=== PATIENT | female | born 1935 | race Hispanic/Latino ===

== ENCOUNTER 2017-07-24 10:03 | Emergency (ER) | payer OTHER ==
[~2017-07-24] VITALS: Ht 147.3 cm; Wt 77.1 kg
--- NOTE | 2017-07-24 12:47 | ED NECK/BACK PAIN COMPLAINT ---
History of Present Illness General Chief Complaint: Low Back Pain/Injury Stated Complaint: LBP/HIP PAIN Source: patient, family Exam Limitations: no limitations Vital Signs & Intake/Output Vital Signs & Intake/Output Vital Signs Date Time Temp Pulse Resp B/P B/P Pulse O2 O2 Flow FiO2 Mean Ox Delivery Rate 07/24 1655 97.8 82 18 158/76 98 Room Air 07/24 1444 97 Room Air 07/24 1423 97.6 80 16 175/74 97 Room Air 07/24 1027 96.7 95 15 173/77 98 Room Air Room Air Allergies Coded Allergies: Penicillins (Intermediate, RASH 07/24/17) Reconcile Medications Tylenol With Codeine (Tylenol With Codeine #3 Tablet) 300 MG-30 MG TABLET 1 TAB PO BIDP PRN PAIN Triage Note: PT TO ED FOR C/C OF R LOWER BACK PAIN "IN THE MUSCLE" THAT RADIATES TOWARDS FRONT OF BODY. HURTS WORSE WITH POSITION CHANGES ESPECIALLY SITTING AND GETTING UP. DENIES SYMPTOMS. HX OF RHEUMATOID ARTHRITIS. Triage Nurses Notes Reviewed? yes Onset: Gradual Duration: getting worse Timing: recent history Quality/Severity: severe, radiation Method of Injury: unknown HPI: Patient is a 81-year-old female with past medical history of rheumatoid arthritis and a recent history a few months ago of TIA who takes homeopathic medications who presents emergency room with a 2 year history of right-sided hip pain over the past 4 days her hip pain has significantly worsened. Patient also states for the past 2 weeks she's been complaining of generalized body itching sensation and is worried about cancer as family history significant for cancer, patient has had multiple colonoscopies with unremarkable findings, last bowel movement was yesterday noted the diarrhea loose watery in nature no blood no melena noted. Patient denies any fever chills shortness of breath cough nausea vomiting dysuria hematuria vaginal bleeding or discharge. Patient is able to eat with no change in symptoms Patient pain is described as the right posterior lateral hip with radiation to her right pelvic region states that ambulation and palpation makes worse at rest she has no symptoms DENIES any rash Denies any weight loss or night sweats Patient denies any mechanism of injury or recent falls (Steph TREADWELL,Darryl) Past History Travel History Traveled to [place] past 21 day No Medical History Any Pertinent Medical History? see below for history Neurological: TIA Cardiovascular: HEART PROBLEM (PT UNSURE) Musculoskeletal: RHEUMATOID ARTHRITIS Surgical History Surgical History: non-contributory Psychosocial History What is your primary language [place] Tobacco Use: Quit >30 days ago ETOH Use: denies use Illicit Drug Use: denies illicit drug use Family History Hx Contributory? No (Darryl Rico) Review of Systems Review of Systems Constitutional: Reports: no symptoms. Eyes: Reports: no symptoms. Ears, Nose, Throat, Mouth: Reports: no symptoms. Respiratory: Reports: no symptoms. Cardiovascular: Reports: no symptoms. Gastrointestinal/Abdominal: Reports: no symptoms. Musculoskeletal: Reports: see HPI, joint pain, muscle pain. Skin: Reports: see HPI. Neurological/Psychological: Reports: no symptoms. All Other Systems: Reviewed and Negative (Darryl Rico) Physical Exam Physical Exam General Appearance: mild distress Head: atraumatic Eyes: Bilateral: normal appearance, PERRL. Ears, Nose, Throat, Mouth: hearing grossly normal Neck: normal inspection, supple Respiratory: normal breath sounds, chest non-tender, no respiratory distress Cardiovascular: regular rate/rhythm Peripheral Pulses: 2+ radial (R) Gastrointestinal: MILD RLQ/PELVIC PAIN NO REBOUND TENDERNESS Back: normal inspection Neurologic/Psych: no motor/sensory deficits, awake, alert Skin: intact, normal color, warm/dry Comments: Right hip normal inspection right posterior lateral and anterior generalized point tenderness noted patient able to perform straight leg raise with pain. HIP Scoring test was negative Core Measures CVA/TIA Diagnosis: No (Darryl Rico) Progress Differential Diagnosis: AAA, aortic dissection, C spine injury, carotid dissection, cauda equina syn, herniated disc, myofascial strain, pyelo/UTI, sciatica, spinal cord inj, thoracic outlet syn, T/L spine injury, ureterolithiasis Plan of Care: Orders Procedure Date/time Status [facility] SED RATE 07/24 1302 Complete COMPREHENSIVE METABOLIC PANEL 07/24 1302 Complete CBC WITHOUT DIFFERENTIAL 07/24 1302 Complete Laboratory Tests 07/24/17 1341: Anion Gap 12, Estimated GFR > 60, BUN/Creatinine Ratio 20.0, Glucose 94, Calcium 9.5, Total Bilirubin 0.3, AST 30, ALT 33, Alkaline Phosphatase 79, Total Protein 7.5, Albumin 4.7, Globulin 2.8, Albumin/Globulin Ratio 1.7, CBC w Diff NO MAN DIFF REQ, RBC 4.47, MCV 98.1, MCH 32.7 H, MCHC 33.4, RDW 14.1, MPV 8.0, Gran % 62.9, Lymphocytes % 27.4, Monocytes % 6.1, Eosinophils % 2.4, Basophils % 1.2, Absolute Granulocytes 5.8, Absolute Lymphocytes 2.5, Absolute Monocytes 0.6, Absolute Eosinophils 0.2, Absolute Basophils 0.1, ESR [facility] 23 H 07/24/17 1302: Urine Color Cancelled, Urine Clarity Cancelled, Urine pH Cancelled, Ur Specific Gilliam Cancelled, Urine Protein Cancelled, Urine Ketones Cancelled, Urine Nitrite Cancelled, Urine Bilirubin Cancelled, Urine Urobilinogen Cancelled, Ur Leukocyte Esterase Cancelled, Ur Microscopic Cancelled, Urine Hemoglobin Cancelled, Urine Glucose Cancelled On examination no concerns of herpes zoster Patient does most likely have musculoskeletal pain upon palpation of the right gluteus lukas and medius upon palpation due to tenderness Patient noted to be weightbearing wincing in pain to the right lower extremity Blood work and CT scan will be ordered due to right pelvic pain Patient was reevaluated on multiple occasions noted to be resting comfortably in bed pain is only elicited upon weightbearing activities patient was given morphine patient was noted to be ambulating with a cane showing normal steady gait patient states that she has complete resolution of her pain upon weightbearing activities blood work and CT scan was unremarkable discussed results with patient most likely patient's pain is musculoskeletal in origin Case management will evaluate patient and set up home health services upon discharge patient looks well no apparent distress patient had no questions Dr. HESS also evaluated patient and agrees Diagnostic Imaging: Viewed by Me: CT Scan. Radiology Impression: no acute abnormality, no fracture Comments: PATIENT: FRANKLIN GRAF PRESENT AGE: 81 PATIENT ACCOUNT NO: [id number] : 36 LOCATION: [facility] ORDERING PHYSICIAN: Darryl TREADWELL SERVICE DATE: 07/24/17 EXAM TYPE: CAT - CT ABD & PELVIS W/O IV CONTRAS EXAMINATION: CT ABDOMEN AND PELVIS WITHOUT CONTRAST CLINICAL INFORMATION: Right pelvic and right hip pain COMPARISON: None. TECHNIQUE: Multidetector volumetric imaging was performed from the lung bases through the pubic symphysis. Sagittal and coronal reformatted images were obtained on the technologist workstation. Total exam dose-length product 479 mGy-cm FINDINGS: The lack of intravenous contrast limits evaluation of the solid visceral organs including the liver, spleen, pancreas, and kidneys. LUNG BASES: The visualized lung bases are unremarkable. LIVER, GALLBLADDER, AND BILIARY TREE: Limited non-contrast evaluation is normal. No gross focal hepatic lesion. Normal liver size and contour. No gross biliary ductal dilation. Multiple surgical clips are seen in the gallbladder fossa consistent with prior cholecystectomy PANCREAS: Limited non-contrast evaluation is normal. No hernesto-pancreatic fluid. SPLEEN: Limited non-contrast evaluation is normal. ADRENAL GLANDS: Normal; no adrenal mass. KIDNEYS AND URETERS: Both kidneys, particularly on the right, have a somewhat transverse orientation. No hydronephrosis or calculi seen. Lack of intravenous contrast limits evaluation for mass. GASTROINTESTINAL TRACT: Small bowel and colon are non-dilated. No bowel wall thickening. No pericolonic inflammatory changes to suggest colitis or diverticulitis. Normal appendix ABDOMINAL WALL: No hernia seen. LYMPH NODES: No pathologically enlarged lymph nodes in the abdomen or pelvis. VASCULAR: Normal caliber abdominal aorta. BLADDER: Unremarkable. PELVIC VISCERA: Normal noncontrast appearance of the uterus and ovaries. OSSEOUS STRUCTURES: No acute or suspicious osseous abnormalities. There are multilevel degenerative changes of the thoracolumbar spine with lower lumbar facet arthropathy. This study was not performed specifically to evaluate for right hip fracture but no displaced right hip or pelvic fracture is seen. IMPRESSION: No CT findings to explain the patient's right hip or pelvic pain. DICTATED BY: Jorje Herrera MD DATE/TIME DICTATED:07/24/171535 [facility] AIDE:GREG DATE/TIME TRANSCRIBED:07/24/171535 CONFIDENTIAL, DO NOT COPY WITHOUT APPROPRIATE AUTHORIZATION. <Electronically signed in Other Vendor System> SIGNED BY: Jorje Herrera MD [id number] (Darryl Rico) Departure Departure Disposition: HOME OR SELF CARE Condition: Stable Clinical Impression Primary Impression: Right hip pain Secondary Impressions: Abdominal pain Referrals: Greta PRIEST,Jaxon Brady (PCP/Family) Adonis Navarro MD Additional Instructions: As discussed continue using your cane or walker for fall prevention at all times begin the prescription for Tylenol codeine if needed for pain YOU will receive a phone call for evaluation of home physical therapy, if symptoms worsen return to emergency room, if no better on Friday follow up with orthopedic Dr. Navarro. Prescriptions are waiting at [facility] Departure Forms: Customer Survey General Discharge Information Prescriptions: Current Visit Scripts Tylenol With Codeine (Tylenol With Codeine #3 Tablet) 1 TAB PO BIDP PRN PAIN #10 TAB (Darryl Rico) PA/FINANCIAL COORDINATOR Co-Sign Statement Statement: ED Attending supervision documentation- [x] I saw and evaluated the patient. I have also reviewed all the pertinent lab results and diagnostic results. I agree with the findings and the plan of care as documented in the PA's/FINANCIAL COORDINATOR's documentation. [] I have reviewed the ED Record and agree with the PA's/FINANCIAL COORDINATOR's documentation. [] Additions or exceptions (if any) to the PAs/FINANCIAL COORDINATOR's note and plan are summarized below: [] (Adrián Hess DO)
[2017-07-24 14:02] LABS: ABSOLUTE BASOPHIL COUNT 0.1 /CUMM (0.0-0.2); ABSOLUTE EOSINOPHIL COUNT 0.2 /CUMM (0.0-0.7); ABSOLUTE GRANULOCYTE CT 5.8 /CUMM (1.4-6.5); ABSOLUTE LYMPH COUNT 2.5 /CUMM (1.2-3.4); ABSOLUTE MONOCYTE COUNT 0.6 /CUMM (0.10-0.60); BASOPHIL % 1.2 % (0.0-2.0); EOSINOPHIL % 2.4 % (0-5); GRANULOCYTE % 62.9 % (42.2-75.2); HEMATOCRIT 43.8 % (37-47); MEAN CORPUSCULAR HGB 32.7 PG (27.0-31.0); MEAN CORPUSCULAR HGB CONC 33.4 G/DL (33.0-37.0); MEAN CORPUSCULAR VOLUME 98.1 FL (81.0-99.0); PLATELET COUNT 393 /CUMM (130-400); RBC DISTRIBUTION WIDTH 14.1 % (11.5-14.5); RED BLOOD CELL CT 4.47 /CUMM (4.20-5.40); WHITE BLOOD CELL COUNT 9.3 /CUMM (4.8-10.8)
--- NOTE | 2017-07-24 15:53 | CT SCAN REPORT ---
EXAMINATION: CT ABDOMEN AND PELVIS WITHOUT CONTRAST CLINICAL INFORMATION: Right pelvic and right hip pain COMPARISON: None. TECHNIQUE: Multidetector volumetric imaging was performed from the lung bases through the pubic symphysis. Sagittal and coronal reformatted images were obtained on the technologist workstation. Total exam dose-length product 479 mGy-cm FINDINGS: The lack of intravenous contrast limits evaluation of the solid visceral organs including the liver, spleen, pancreas, and kidneys. LUNG BASES: The visualized lung bases are unremarkable. LIVER, GALLBLADDER, AND BILIARY TREE: Limited non-contrast evaluation is normal. No gross focal hepatic lesion. Normal liver size and contour. No gross biliary ductal dilation. Multiple surgical clips are seen in the gallbladder fossa consistent with prior cholecystectomy PANCREAS: Limited non-contrast evaluation is normal. No hernesto-pancreatic fluid. SPLEEN: Limited non-contrast evaluation is normal. ADRENAL GLANDS: Normal; no adrenal mass. KIDNEYS AND URETERS: Both kidneys, particularly on the right, have a somewhat transverse orientation. No hydronephrosis or calculi seen. Lack of intravenous contrast limits evaluation for mass. GASTROINTESTINAL TRACT: Small bowel and colon are non-dilated. No bowel wall thickening. No pericolonic inflammatory changes to suggest colitis or diverticulitis. Normal appendix ABDOMINAL WALL: No hernia seen. LYMPH NODES: No pathologically enlarged lymph nodes in the abdomen or pelvis. VASCULAR: Normal caliber abdominal aorta. BLADDER: Unremarkable. PELVIC VISCERA: Normal noncontrast appearance of the uterus and ovaries. OSSEOUS STRUCTURES: No acute or suspicious osseous abnormalities. There are multilevel degenerative changes of the thoracolumbar spine with lower lumbar facet arthropathy. This study was not performed specifically to evaluate for right hip fracture but no displaced right hip or pelvic fracture is seen. IMPRESSION: No CT findings to explain the patient's right hip or pelvic pain.
[2017-07-24] MEDS ORDERED: TYLENOL WITH C1 EACH PO (16:35)
[2017-07-24 16:55] VITALS: BP 158/76
== END 2017-07-24 17:34 ==
LOC: ERH 10:03
PROVIDERS: Physician Assistant
DX: M25.551 Pain in right hip (principal); R10.31 Right lower quadrant pain
CPT/HCPCS: 74176; 96374

== ENCOUNTER 2017-10-25 11:42 | Emergency (ER) | payer OTHER ==
[~2017-10-25] VITALS: Ht 149.9 cm; Wt 74.8 kg
[~2017-10-25 11:42] MED LIST: TYLENOL WITH C1 EACH PO
--- NOTE | 2017-10-25 12:21 | ED CARDIAC/CP/PALPITATIONS ---
History of Present Illness General Chief Complaint: General Adult Stated Complaint: HIGH BLOOD PRESSURE Source: patient, family, old records Exam Limitations: no limitations Vital Signs & Intake/Output Vital Signs & Intake/Output Vital Signs Date Time Temp Pulse Resp B/P B/P Pulse O2 O2 Flow FiO2 Mean Ox Delivery Rate 10/25 1155 96.2 107 18 155/84 96 Room Air Allergies Coded Allergies: Penicillins (Intermediate, RASH 07/24/17) Reconcile Medications Tylenol With Codeine (Tylenol With Codeine #3 Tablet) 300 MG-30 MG TABLET 1 TAB PO BIDP PRN PAIN Triage Note: PT TO ER C/C ANXIETY AND HTN ON AND OFF X 1 DAY. PT HAS TRIP PLANNED TO GO TO [place] TODAY. ON THE WAY, FELT "EDGY" STOPPED AT [facility], HAD BP CHECKED. BP WAS 180/100 AND WAS ADVISED BY [facility] TO BE SEEN IN ER. DENIES C/P OR SOB. Triage Nurses Notes Reviewed? yes HPI: 81F PMH TIA presenting with episode of anxiety resulting in elevated BP. Was on a road trip to [place] and has been anxious all week due to the trip. Today she was anxious and agitated and stopped at a fire house to have her BP checked, which was >190/100 when checked by EMS, so came here to ED. Here she feels well and has no complaints. Her BP is well controlled. She reports an episode last night of involuntary contraction of her fingers that resolved after a few minutes. She denies headache, lightheadedness, dizziness, vision changes, hearing changes, weakness, numbness, paresthesia, chest pain, palpitations, SOB, abdominal pain, infectious symptoms. She has had negative stress tests in the past. She has episodes of hypertension associated with anxiety but is not on medication for HTN as it is usually well controlled. Past History Travel History Traveled to [facility] past 21 day No Medical History Any Pertinent Medical History? see below for history Neurological: TIA Cardiovascular: HEART PROBLEM (PT UNSURE) Musculoskeletal: RHEUMATOID ARTHRITIS Surgical History Surgical History: non-contributory Psychosocial History What is your primary language Kinyarw[place] Tobacco Use: Quit >30 days ago Family History Hx Contributory? No Review of Systems Review of Systems Constitutional: Reports: no symptoms. EENTM: Reports: no symptoms. Respiratory: Reports: no symptoms. Cardiovascular: Reports: no symptoms. GI: Reports: no symptoms. Genitourinary: Reports: no symptoms. Musculoskeletal: Reports: no symptoms. Skin: Reports: no symptoms. Neurological/Psychological: Reports: no symptoms. Hematologic/Endocrine: Reports: no symptoms. Immunologic/Allergic: Reports: no symptoms. All Other Systems: Reviewed and Negative Physical Exam Physical Exam General Appearance: well developed/nourished, no apparent distress Head: atraumatic, normal appearance Eyes: Bilateral: normal appearance. Ears, Nose, Throat: normal ENT inspection, hearing grossly normal Neck: normal inspection, supple, full range of motion Respiratory: normal breath sounds, no respiratory distress Cardiovascular: regular rate/rhythm Gastrointestinal: soft, non-tender Back: normal inspection, normal range of motion Extremities: normal inspection Neurologic/Psych: awake, alert, oriented x 3, normal mood/affect Skin: intact, normal color, warm/dry Core Measures ACS in differential dx? No CVA/TIA Diagnosis No Sepsis Present: No Sepsis Focused Exam Completed? No Progress Differential Diagnosis: AMI, aortic dissection, atrial fibrillation, cholecystitis, CHF/pulm edema, costochondritis, hyperkalemia, hypovolemia, hyperthyroid, hyperventilation, intracranial hemorrhage, musculoskeletal pain, myocarditis, pancreatitis, pericarditis, pneumonia, pneumothorax, PSVT, pulmonary embolism, PUD/GERD, PVCs/PACs, respiratory failure, rib fracture, sepsis, unstable angina, V-fib/V-Tach, WPW syndrome Plan of Care: Orders Procedure Date/time Status TROPONIN LEVEL 10/25 1237 Complete URIC ACID 10/25 1220 Complete MAGNESIUM 10/25 1220 Complete COMPREHENSIVE METABOLIC PANEL 10/25 1220 Complete EKG 10/25 1156 Active Laboratory Tests 10/25/17 1237: Anion Gap 13, Estimated GFR > 60, BUN/Creatinine Ratio 22.9, Glucose 96, Uric Acid 6.4 H, Calcium 9.3, Magnesium 2.1, Total Bilirubin 0.6, AST 26, ALT 26, Alkaline Phosphatase 74, Troponin I < 0.01, Total Protein 7.4, Albumin 4.3, Globulin 3.1, Albumin/Globulin Ratio 1.4 10/25/17 1226: Troponin I Cancelled Doing well. BP remains controlled. Asymptomatic. Initial ED EKG: normal sinus rhythm, LBBB, per family has a history of LBBB Departure Departure Disposition: HOME OR SELF CARE Condition: Stable Clinical Impression Primary Impression: Hypertensive urgency Secondary Impressions: Anxiety Referrals: Greta PRIEST,Jaxon Brady (PCP/Family) Additional Instructions: Follow up with your PCP. Return to ER if any new or worsening symptoms. Departure Forms: Customer Survey General Discharge Information Critical Care Note Critical Care Note Critical Care Time: 30-74 min
[2017-10-25 13:57] VITALS: BP 151/64
== END 2017-10-25 14:04 ==
LOC: ERH 11:42
DX: I10 Essential (primary) hypertension (principal); F41.9 Anxiety disorder, unspecified
CPT/HCPCS: 93005; 93010